=== PATIENT | male | born 1995 | race Hispanic/Latino ===

== ENCOUNTER 2018-10-26 10:54 | Emergency (ER) | payer MEDICAID ==
[2018-10-26] MEDS ORDERED: DEXAMETHASONE SOD PHOSPHATE 10MG/ML 1ML VIAL ONE (11:35)
[2018-10-26] MEDS ORDERED: ONDANSETRON HCL 4 MG/2 ML VIAL ONE (11:36)
[2018-10-26] MEDS ORDERED: DiphenhydrAMINE HCL 50 MG/ML VIAL ONE (11:36)
[2018-10-26] MEDS ORDERED: KETOROLAC TROMETHAMINE 15MG/ML ONE (11:36)
== END 2018-10-26 12:29 | disposition home or self-care (01) ==
LOC: EDH 10:54
DX: G43.909 Migraine, unspecified, not intractable, without status migrainosus (principal)
CPT/HCPCS: 96374; 96375; 99284; J1100; J1200; J1885; J2405